=== PATIENT | male | born 1970 | race Asian ===

== ENCOUNTER 2018-12-21 11:24 | Emergency (ER) | payer BC, SELFPAY ==
--- NOTE | 2018-12-21 11:29 | NUR.NOTE ---
pt [place] resulting in a hard landing causing left knee pain pt was able to stand up after the incident. pt denies hitting his head or any other injury
[2018-12-21 11:31] VITALS: BP 130/82; PULSE 68; RESP 16; TEMP 36.7; O2SAT 99
--- NOTE | 2018-12-21 11:37 | W.ED.GENAD ---
Discharge Plan Disposition Patient Disposition: HOME Condition: Good Discharge Details Chief Complaint: Orthopedic Clinical Impression: Knee pain, left, ACL injury tear ED Provider: Mac Pereyra Discharge Instructions Instructions: ACL Injury (ED) Additional Instructions: Please maintain the knee immobilizer and use her crutches at all times. Please follow-up immediately with the orthopedic surgeon in [place]. Please use Tylenol Motrin and ice as needed for pain. If you notice any worsening of your symptoms, or any new symptoms such as vomiting, diarrhea, fever, chills, shortness of breath, chest pain, numbness, weakness, or fainting , please return immediately to the emergency department for reevaluation. Please follow up with your primary care provider as soon as possible for reassessment and reevaluation. As always, it was a pleasure participating in your medical care today. Medical Decision Making This is a pleasant 47-year-old male who presents for evaluation of left knee pain after landing hard on a jump at the [employer] [place] at [facility]. Physical exam demonstrates minimal swelling proximal to the patella. Normal strength L, with no signs of muscle or tendon dislocation. Minimal swelling over the proximal fibular head, no joint instability on exam. Concern for mild ligamentous injury, and less likely fracture. Normal neurovascular exam. No signs of dislocation. Will get an x-ray to rule out fracture, I feel that the patient would benefit from a knee brace and crutches and outpatient orthopedic follow-up. 1:29 PM Initial x-ray of the knee was read as negative, however with a concern for signal and fracture visualized on the lateral aspect just proximal to the fibula, we did contact the virtual radiologist and I spoke with Dr. Swan, he agrees that there is a linear radiodensity at the lateral aspect of the lateral tibial plateau suggestive of an avulsion fracture/ligament fracture. With concern for ACL injury, but otherwise neurovascularly stable, I feel that the patient be safely discharged home with prompt follow-up with his orthopedic surgeon in [place]. We discussed red flags for which to immediately return and seek medical care, patient understands. The patient has been given a knee immobilizer and crutches. Pain is well controlled. I have extensively reviewed the treatment plan and discharge instructions with the patient. I have addressed all patient concerns at this time. The patient was made aware of what symptoms to monitor for that would warrant a return to the emergency department. Discussed the plan with the patient, they demonstrate verbal understanding and agreement with our assessment and plan at this time. TECHNIQUE: XR Left knee 3 views. COMPARISON: No relevant prior studies available. FINDINGS: Bones/joints: Normal. Soft tissues: Normal. IMPRESSION: No acute findings. Thank you for allowing us to participate in the care of your patient. Dictated and Authenticated by: Rob Swan MD [facility] General Date/Time Provider Initiated Documentation: 12/21/18 11:28. HPI Narrative: This is a 47-year-old male with a past medical history of ADHD who presents today for evaluation of left knee pain. Patient was skiing at work when he landed hard on a jump, felt notable pressure in his knee. He had significant pain after this but was able to ski down with assistance. States that the pain is located in the lateral aspect of his knee, he feels some mild swelling, symptoms are made worse with movement and standing, improved by nothing. He denies any associated numbness tingling or weakness. He denies any radiation down his leg, or up towards his hip or groin. He denies hitting his head or injuring any other part of his body. He denies any surgeries or any other pertinent past medical history. Related Data Allergies Allergy/AdvReac Type Severity Reaction Status Date / Time No Known Allergies Allergy Unverified 12/21/18 11:35 General Stated Complaint: Orthopedic SAMI: 3 Review of Systems Review of Systems All systems reviewed & are unremarkable except as noted in HPI and below PFSH Social History Smoking and Tabacco status: Never Exam Narrative Exam Narrative: 1.Const: Well-nourished, Well-developed, appearing stated age 2.Eyes: PERRL, no conjunctival injection, and symmetrical lids. 3.ENT: Atraumatic external nose and ears. Moist MM. Neck: Symmetric, trachea midline, No thyromegaly. 4.CVS: +S1/S2, No murmurs or gallops. Peripheral pulses 2+ and equal in all extremities. Brisk capillary refill in all extremities. 5.RESP: Unlabored respiratory effort. Clear to auscultation bilaterally. No wheezes rales or rhonchi 6.GI: Soft, Nontender/Nondistended, No hepatosplenomegaly. No guarding or rebound. 7.MSK: Normocephalic/Atraumatic, Extremities w/o deformity. No cyanosis or clubbing, Normal movement of all extremities. Notable pain while standing and walking on his left knee. The knee is stable to varus, valgus, and anterior drawer stress. No deformity. Patellar grind test is negative for significant pain. Minimal swelling just proximal to the patella. No patellar tenderness no warmth to the joint. No ttp to the patella, tibial plateau. Minimal tenderness over the fibular head. No crepitus with movement. 8.Skin: Warm, Dry. No rashes or lesions. 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 Sensation grossly intact, no focal neurologic deficits. 10.Psych: (AAO) x3. Appropriate mood and affect Course Vital Signs Temperature 36.7 C 12/21/18 11:31 Pulse 68 12/21/18 11:31 Respiratory Rate 16 12/21/18 11:31 Blood Pressure 130/82 12/21/18 11:31 Pulse Oximetry 99 12/21/18 11:31 Temperature 36.7 C 12/21/18 11:31 Temperature Source Skin 12/21/18 11:31 Pulse 68 12/21/18 11:31 Respiratory Rate 16 12/21/18 11:31 Blood Pressure 130/82 12/21/18 11:31 Blood Pressure Position Sitting 12/21/18 11:31 Pulse Oximetry 99 12/21/18 11:31 Oxygen Delivery Method Room Air 12/21/18 11:31 Oxygen Flow Rate 0 12/21/18 11:31 Pain Level 6 12/21/18 11:31
--- NOTE | 2018-12-21 11:41 | ED.GENADUL_ITS ---
Discharge Plan Disposition Patient Disposition: HOME Condition: Good Discharge Details Chief Complaint: Orthopedic Clinical Impression: Knee pain, left, ACL injury tear ED Provider: Mac Pereyra Discharge Instructions Instructions: ACL Injury (ED) Additional Instructions: Please maintain the knee immobilizer and use her crutches at all times. Please follow-up immediately with the orthopedic surgeon in [place]. Please use Tylenol Motrin and ice as needed for pain. If you notice any worsening of your symptoms, or any new symptoms such as vomiting, diarrhea, fever, chills, shortness of breath, chest pain, numbness, weakness, or fainting , please return immediately to the emergency department for reevaluation. Please follow up with your primary care provider as soon as possible for reassessment and reevaluation. As always, it was a pleasure participating in your medical care today. Medical Decision Making This is a pleasant 47-year-old male who presents for evaluation of left knee pain after landing hard on a jump [place] [employer] [place] at [facility]. Physical exam demonstrates minimal swelling proximal to the patella. Normal strength L, with no signs of muscle or tendon dislocation. Minimal swelling over the proximal fibular head, no joint instability on exam. Concern for mild ligamentous injury, and less likely fracture. Normal neurovascular exam. No signs of dislocation. Will get an x-ray to rule out fracture, I feel that the patient would benefit from a knee brace and crutches and outpatient orthopedic follow-up. 1:29 PM Initial x-ray of the knee was read as negative, however with a concern for signal and fracture visualized on the lateral aspect just proximal to the fibula, we did contact the virtual radiologist and I spoke with Dr. Swan, he agrees that there is a linear radiodensity at the lateral aspect of the lateral tibial plateau suggestive of an avulsion fracture/ligament fracture. With concern for ACL injury, but otherwise neurovascularly stable, I feel that the patient be safely discharged home with prompt follow-up with his orthopedic surgeon in [place]. We discussed red flags for which to immediately return and seek medical care, patient understands. The patient has been given a knee immobilizer and crutches. Pain is well controlled. I have extensively reviewed the treatment plan and discharge instructions with the patient. I have addressed all patient concerns at this time. The patient was made aware of what symptoms to monitor for that would warrant a return to the emergency department. Discussed the plan with the patient, they demonstrate verbal understanding and agreement with our assessment and plan at this time. TECHNIQUE: XR Left knee 3 views. COMPARISON: No relevant prior studies available. FINDINGS: Bones/joints: Normal. Soft tissues: Normal. IMPRESSION: No acute findings. Thank you for allowing us to participate in the care of your patient. Dictated and Authenticated by: Rob Swan MD [facility] General Date/Time Provider Initiated Documentation: 12/21/18 11:28 . HPI Narrative: This is a 47-year-old male with a past medical history of ADHD who presents today for evaluation of left knee pain. Patient was skiing at work when he landed hard on a jump, felt notable pressure in his knee. He had significant pain after this but was able to ski down with assistance. States that the pain is located in the lateral aspect of his knee, he feels some mild swelling, symptoms are made worse with movement and standing, improved by nothing. He denies any associated numbness tingling or weakness. He denies any radiation down his leg, or up towards his hip or groin. He denies hitting his head or injuring any other part of his body. He denies any surgeries or any other pertinent past medical history. Related Data Allergies Allergy/AdvReac Type Severity Reaction Status Date / Time No Known Allergies Allergy Unverified 12/21/18 11:35 General Stated Complaint: Orthopedic SAMI: 3 Review of Systems Review of Systems All systems reviewed & are unremarkable except as noted in HPI and below PFSH Social History Smoking and Tabacco status: Never Exam Narrative Exam Narrative: 1.Const: Well-nourished, Well-developed, appearing stated age 2.Eyes: PERRL, no conjunctival injection, and symmetrical lids. 3.ENT: Atraumatic external nose and ears. Moist MM. Neck: Symmetric, trachea midline, No thyromegaly. 4.CVS: +S1/S2, No murmurs or gallops. Peripheral pulses 2+ and equal in all extremities. Brisk capillary refill in all extremities. 5.RESP: Unlabored respiratory effort. Clear to auscultation bilaterally. No wheezes rales or rhonchi 6.GI: Soft, Nontender/Nondistended, No hepatosplenomegaly. No guarding or rebound. 7.MSK: Normocephalic/Atraumatic, Extremities w/o deformity. No cyanosis or clubbing, Normal movement of all extremities. Notable pain while standing and walking on his left knee. The knee is stable to varus, valgus, and anterior drawer stress. No deformity. Patellar grind test is negative for significant pain. Minimal swelling just proximal to the patella. No patellar tenderness no warmth to the joint. No ttp to the patella, tibial plateau. Minimal tenderness over the fibular head. No crepitus with movement. 8.Skin: Warm, Dry. No rashes or lesions. 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 Sensation grossly intact, no focal neurologic deficits. 10.Psych: (AAO) x3. Appropriate mood and affect Course Vital Signs Temperature 36.7 C 12/21/18 11:31 Pulse 68 12/21/18 11:31 Respiratory Rate 16 12/21/18 11:31 Blood Pressure 130/82 12/21/18 11:31 Pulse Oximetry 99 12/21/18 11:31 Temperature 36.7 C 12/21/18 11:31 Temperature Source Skin 12/21/18 11:31 Pulse 68 12/21/18 11:31 Respiratory Rate 16 12/21/18 11:31 Blood Pressure 130/82 12/21/18 11:31 Blood Pressure Position Sitting 12/21/18 11:31 Pulse Oximetry 99 12/21/18 11:31 Oxygen Delivery Method Room Air 12/21/18 11:31 Oxygen Flow Rate 0 12/21/18 11:31 Pain Level 6 12/21/18 11:31
[2018-12-21] MEDS: Ibuprofen 800 MG TAB PO (11:42)
[2018-12-21] MEDS: Acetaminophen 500 MG TAB 1000 MG PO (11:42)
[2018-12-21] MEDS: Lidocaine 5% Patch 1 PATCH TP (11:42)
--- NOTE | 2018-12-21 11:50 | DI.RAD_ITS ---
SYMPTOM/DIAGNOSIS: FELL SKIING, ? FX, PAIN LEFT KNEE: No fracture or joint effusion is seen. The joint spaces are well maintained. IMPRESSION: Negative left knee.
--- NOTE | 2018-12-21 13:15 | DI.VRAD_ITS ---
Addendum created by Rob Swan MD on 12/21/2018 1:26:47 PM EST Linear radiodensity along the lateral aspect of the lateral tibial plateau suggestive of an avulsion fracture. Results discussed with ZULEIKA FOURNIER at 12/21/2018 1:26 PM EST. Initial report created on 12/21/2018 1:14:48 PM EST EXAM: XR Left Knee, 3 Views EXAM DATE/TIME: 12/21/2018 12:06 PM CLINICAL HISTORY: 48 years old, male; Pain; Knee; Left; Patient HX: Skiing incident today, followed by pain TECHNIQUE: XR Left knee 3 views. COMPARISON: No relevant prior studies available. FINDINGS: Bones/joints: Normal. Soft tissues: Normal. IMPRESSION: No acute findings. Dictated and Authenticated by: Rob Swan MD. Ordering:JORGE LUIS Watts MD
== END 2018-12-21 13:42 | disposition home or self-care (01) ==
LOC: ER 14:00
PROVIDERS: Emergency Provider Student in an Organized Health Care Education/Training Program
DX: S83.512A Sprain of anterior cruciate ligament of left knee, initial encounter (principal); M25.562 Pain in left knee; X50.9XXA Other and unspecified overexertion or strenuous movements or postures, initial encounter; Y93.23 Activity, snow (alpine) (downhill) skiing, snowboarding, sledding, tobogganing and snow tubing
CPT/HCPCS: 29505; 73562; 99283; E0114; L1830